=== PATIENT | female | born 1990 | race Caucasian/White ===

== ENCOUNTER 2017-11-26 05:13 | Emergency (ER) | payer BC, OTHER ==
[~2017-11-26] VITALS: Ht 172.7 cm; Wt 55.8 kg
[2017-11-26 07:24] LABS: Basophils # (auto) 0 uL; Basophils % (auto) 0.4 % (0.0-2.0); Eosinophils # (auto) 0 uL; Eosinophils % (auto) 0.5 % (0.0-7.0); Hematocrit 44.4 % (36.0-46.0); Hemoglobin 14.9 g/dL (12.2-16.2); Lymphocytes # (auto) 1.6 uL; Lymphocytes % (auto) 22.7 % (10.0-50.0); Mean Corpuscular Hemoglobin 31.1 pg (28.0-32.0); Mean Corpuscular Hgb Conc. 33.5 g/dL (32.0-36.0); Mean Corpuscular Volume 92.7 fL (80.0-100.0); Monocytes # (auto) 0.6 uL; Neutrophils # (auto) 4.7 uL; Neutrophils % (auto) 68.4 % (37.0-80.0); Nucleated Red Blood Cells % 0.1 %; Platelet Count (auto) 256 10^3/uL (140-450); Red Blood Cells 4.79 10^6/uL (4.0-5.20); White Blood Cell 6.9 10^3/uL (4.4-10.8)
[2017-11-26 07:31] LABS: Urine Amorphous Crystal MOD /hpf (None Seen); Urine Bacteria FEW /hpf (None Seen); Urine Blood Negative /uL (Negative); Urine Mucus FEW (None Seen); Urine Specific Gravity 1.024 (1.001-1.035); Urine WBC 2 /hpf (0 - 5)
[2017-11-26 07:33] LABS: BUN/Creatinine Ratio 11.5; Calcium 8.9 mg/dL (8.5-10.1); Magnesium 2.1 mg/dL (1.6-2.6); Potassium 4.2 mmol/L (3.5-5.1)
[2017-11-26 07:36] LABS: Bilirubin, Total 0.4 mg/dL (0.2-1.0); Total Protein 7.6 g/dL (6.4-8.2)
[2017-11-26 07:59] VITALS: BP 114/76
[2017-11-26] MEDS ORDERED: SODIUM CHLORIDE 0.9% 1,000 ML IV ONE ×2 (08:30→09:15)
[2017-11-26] MEDS ORDERED: ONDANSETRON HCL 4 MG/2 ML VIAL IV ONE (08:30)
== END 2017-11-26 10:34 | disposition home or self-care (01) ==
LOC: ER 05:13
DX: O21.9 Vomiting of pregnancy, unspecified (principal); O26.891 Other specified pregnancy related conditions, first trimester; Z3A.01 Less than 8 weeks gestation of pregnancy; R10.9 Unspecified abdominal pain
CPT/HCPCS: 36415; 76801; 80053; 81001; 83735; 84702; 85025; 96361; 96374; 99285; J2405; J7030

== ENCOUNTER 2019-10-03 00:30 | Emergency (ER) | payer BC, MEDICAID ==
[~2019-10-03] VITALS: Ht 172.7 cm; Wt 52.6 kg
[2019-10-03 00:33] VITALS: BP 134/91
[2019-10-03 01:27] LABS: Urine Bacteria FEW /hpf (None Seen); Urine Blood Negative /uL (Negative); Urine Mucus FEW (None Seen)
[2019-10-03 01:29] LABS: Urine WBC 6 /hpf (0 - 5)
== END 2019-10-03 04:26 | disposition home or self-care (01) ==
LOC: ER 00:33
DX: G43.909 Migraine, unspecified, not intractable, without status migrainosus (principal); N39.0 Urinary tract infection, site not specified; R11.2 Nausea with vomiting, unspecified
CPT/HCPCS: 70450; 81001

== ENCOUNTER 2022-11-01 08:15 | Emergency (ER) | payer MEDICAID ==
[~2022-11-01] VITALS: Ht 172.7 cm; Wt 58.0 kg
[2022-11-01] MEDS ORDERED: SODIUM CHLORIDE 0.9% 1,000 ML IV ONE ×2 (08:45)
[2022-11-01] MEDS ORDERED: PROMETHAZINE HCL 25 MG/ML 1ML IV ONE (08:45)
[2022-11-01 09:09] LABS: Basophils # (auto) 0 10 ^3/uL (0-0.2); Basophils % (auto) 0.3 % (0.0-2.0); Eosinophils # (auto) 0.1 10 ^3/uL (0-0.8); Eosinophils % (auto) 1.5 % (0.0-7.0); Hematocrit 41.4 % (36.0-46.0); Hemoglobin 14.4 g/dL (12.2-16.2); Lymphocytes # (auto) 1.4 10 ^3/uL (0.4-5.4); Lymphocytes % (auto) 14.9 % (10.0-50.0); Mean Corpuscular Hemoglobin 31.1 pg (28.0-32.0); Mean Corpuscular Hgb Conc. 34.7 g/dL (32.0-36.0); Mean Corpuscular Volume 89.7 fL (80.0-100.0); Monocytes # (auto) 0.7 10 ^3/uL (0-1.3); Monocytes % (auto) 7.7 % (0.0-12.0); Neutrophils # (auto) 6.9 10 ^3/uL (1.6-8.6); Neutrophils % (auto) 75.6 % (37.0-80.0); Red Blood Cells 4.62 10^6/uL (4.0-5.20); Red Cell Distribution Width 12.9 % (11.8-14.3); White Blood Cell 9.1 10^3/uL (4.4-10.8)
[2022-11-01 09:18] LABS: Albumin 3.9 g/dL (3.4-5.0); Bilirubin, Total 0.3 mg/dL (0.2-1.0); Calcium 9.3 mg/dL (8.5-10.1); Potassium 4.4 mmol/L (3.5-5.1)
[2022-11-01 12:05] VITALS: BP 125/87
== END 2022-11-01 12:07 | disposition home or self-care (01) ==
LOC: ER 08:15
DX: O21.0 Mild hyperemesis gravidarum (principal); R10.2 Pelvic and perineal pain; Z3A.10 10 weeks gestation of pregnancy
CPT/HCPCS: 36415; 76801; 80053; 84702; 85025; 96361; 96374; 99284; J2550; J7030

== ENCOUNTER 2024-08-21 19:32 | Emergency (ER) | payer SELFPAY ==
[~2024-08-21] VITALS: Ht 172.7 cm; Wt 56.8 kg
--- NOTE | 2024-08-21 19:54 | ED.PDOC ---
History of Present Illness HPI Comments 34 y/o F, with a Hx of hyperemesis gravidarum and a FMHx of endometriosis, presents with c/o abnormal vaginal bleeding and discharge, today. Patient reports being 10.5x weeks with her 5th ([id number]) and endorses onset of symptoms, while using her restroom at home, this evening. Patient desc ribes spotting and discharge as "dark brown" in appearance and estimating on producing a 1/4 of a cup's worth. She states on no prior Hx of symptoms with her previous pregnancies in the past. She reports no recent injuries, sick contact, sexual activities, or other relevant or pertinent Hx at time of assessment. She denies having any abdominal pain, lightheadedness, weakness, dizziness, urinary symptoms, or other associated symptoms at this time. 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: Other (hyperemesis gravidarum) 5 Para 4 AB 0 LMP 06/07/2024 Family History Family History: Reviewed,noncontributory to illness, No family hx of Cancer, No family hx of DM, No family hx of Heart vicenta, No family hx of HTN, No family hx ofKidney vicenta, No family hx of Liver vicenta, No family hx of Lung vicenta, No family hx of Stroke Family History (Other): Family history of brain aneurysm Social History Smoker: Non-Smoker Alcohol: Denies ETOH Use Drugs: Denies Drug Use Lives In: Home Constitutional: denies: chills, diaphoresis, fatigue, fever, malaise, sweats, weakness, others EENTM: denies: blurred vision, double vision, ear bleeding, ear discharge, ear drainage, ear pain, ear ringing, eye pain, eye redness, hearing loss, mouth pain, mouth swelling, nasal discharge, nose bleeding, nose congestion, nose pain, photophobia, tearing, throat pain, throat swelling, voice changes, others Respiratory: denies: cough, hemoptysis, orthopnea, SOB at rest, shortness of breath, SOB with excertion, stridor, wheezing, others Cardiovascular: denies: chest pain, dizzy spells, diaphoresis, Dyspnea on exertion, edema, irregular heart beat, left arm pain, lightheadedness, p alpitations, PND, syncope, others Gastrointestinal: denies: abdomen distended, abdominal pain, blood streaked bowels, constipated, diarrhea, dysphagia, difficulty swallowing, hematemesis, melena, nausea, poor appetite, poor fluid intake, rectal bleeding, rectal pain, vomiting, others Genitourinary: reports: abnormal vagina bleeding, vagina discharge; denies: burning, dyspareunia, dysuria, flank pain, frequency, hematuria, incontinence, pain, , urgency, others Neurological: denies: dizziness, fainting, headache, left sided numbness, left sided weakness, numbness, paresthesia, pre-existing deficit, right sided numbness, right sided weakness, seizure, speech problems, tingling, tremors, weakness, others Musculoskeletal: denies: back pain, gout, joint pain, joint swelling, muscle pain, muscle stiffness, neck pain, others Integumetry: denies: bruises, change in color, change in hair/nails, dryness, laceration, lesions, lumps, rash, wounds, others Allergic/Immunocompromised: denies: Difficulty Healing, Frequent Infections, Hives, Itching, others Hematologic/Lymphatic: denies: anemia, blood clots, easy bleeding, easy bruising, swollen glands, others Endocrine: denies: excessive hunger, excessive sweating, excessive thirst, excessive urination, flushing, intolerance to cold, intolerance to heat, u nexplained weight gain, unexplained weight loss, others Psychiatric: denies: anxiety, bipolar disorder, depression, hopeless, panic disorder, schizophrenia, sleepless, suicidal, others All Other Systems: Reviewed and Negative Physical Exam General Appearance: No Apparent Distress HEENT: Normal ENT Inspection, Pharynx Normal, TMs Normal Neck: Full Range of Motion, Non-Tender, Normal, Normal Inspection Respiratory: Chest Non-Tender, Lungs Clear, No Accessory Muscle Use, No Respiratory Distress, Normal Breath Sounds Cardiovascular: No Edema, No JVD, No Murmur, No Gallop, Normal Peripheral Pulses, Regular Rate/Rhythm Breast Exam: Deferred Gastrointestinal: No Organomegaly, Non Tender, No Pulsatile Mass, Normal Bowel Sounds, Soft Genitalia: Deferred Pelvic: Deferred Rectal: Deferred Extremities: No calf tenderness, Normal capillary refill, Normal inspection, Normal range of motion, Non-tender, No pedal edema Musculoskeletal : Apperance: Normal Neurologic: Alert, 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 Was a procedure done?: No Differential Dx Considerations may include: at-risk , at-risk , menorrhagia, metrorrhagia, dysmenorrhea, UTI X-Ray, Labs, Meds, VS Vital Signs Date Time Temp Pulse Resp B/P (MAP) Pulse Ox O2 Delivery O2 Flow Rate FiO2 08/21/24 19:44 98.1 78 16 122/80 (94) 99 Lab Test 08/21/24 20:07 Range/Units Urine Color Colorless Yellow Urine Clarity Clear Clear Urine pH 6.5 5.0-9.0 Urine Specific [place] 1.012 1.001-1.035 Urine Protein Negative Negative Urine Ketones Negative Negative Urine Blood 1+ H Negative /uL Urine Nitrite Negative Negative Urine Bilirubin Negative Negative Urine Urobilinogen Normal Negative mg/dL Urine Leukocyte Esterase Negative Negative /uL Urine RBC <1 0 - 4 /hpf Urine WBC 1 0 - 5 /hpf Urine Squamous Epithelial Cells Few <5 /hpf Urine Bacteria Few H None Seen /hpf Urine Glucose Normal Normal mg/dL Pelvic ultrasound shows: IMPRESSION: 1. IUP single live fetus 10 weeks 2 days AUA corresponding to an LEIGHTON of 03/17/2025. 2. FHR: 182 bpm No acute abnormality detected. The urine test is negative The patient was being discharged and will follow up with the primary care doctor The patient will return to the emergency department's condition worsens The patient was diagnosis is threatened Images Reviewed?: Images reviewed and evaluated by me Time of 1ST Reevaluation: 20:10 Reevaluation 1ST: Unchanged Patient Education/Counseling: Diagnosis, Treatment, Prognosis Family Education/Counseling: No Family Present Departure 1 Departure Time of Disposition: 21:19 Impression: Primary Impression: Threatened Disposition: HOME / SELF CARE / HOMELESS Condition: Fair Discharged With: Self Critical Care Note Critical Care Time?: No Stability Stability form required: No Heart Score Heart Score: Heart Score Response (Comments) Value History N/A 0 EKG N/A 0 Age N/A 0 Risk Factors N/A 0 Troponin N/A 0 Total 0 I personally scribed for LISE PAYNE MD ([email or web address]) on 08/21/24 at 19:54. Electronically submitted by Nestor Castellon ([email or web address]). LISE PAYNE MD Aug 21, 2024 19:54
[2024-08-21 20:23] LABS: Urine Bacteria FEW /hpf (None Seen); Urine Blood 1+ /uL (Negative); Urine Clarity Clear (Clear); Urine Color Colorless (Yellow); Urine Protein, UAD Negative (Negative); Urine Specific Gravity 1.012 (1.001-1.035); Urine Urobilinogen Normal (Negative); Urine WBC 1 /hpf (0 - 5); Urine pH 6.5 (5.0-9.0)
--- NOTE | 2024-08-21 21:06 | DVH ---
OB ULTRASOUND <14 WEEKS: HISTORY: bleeding TECHNIQUE: Multiple real-time grayscale sonographic images of the pelvis with duplex Doppler color f low, spectral and M-mode analysis. TRANSDUCERS: Transabdominal FINDINGS: The uterus measures 11.25 by 11.22 by 7.73 Right ovary measures 2.29 by 1.47 x 2.36 cm. Volume of the right ovary is 4.16 cc. There is a mixed m ass in the right ovary measuring 1.38 x 1.5 x 1.58 cm. with normal Doppler color flow Left ovary measures 1.83 x 1.56 x 1.89 cm. Left ovarian volume is 2.82 cc with normal Doppler color f low IUP single live fetus at 10 weeks 2 days average ultrasound age based on mean crown-rump length of 3. 57 cm and gestational sac size of 4.58 cm heart rate detected at 182 beats per minute. Yolk sac visualized. Amniotic fluid adequate IMPRESSION: 1. IUP single live fetus 10 weeks 2 days AUA corresponding to an LEIGHTON of 03/17/2025. 2. FHR: 182 bpm No acute abnormality detected.
[2024-08-21 23:45] VITALS: BP 115/81; PULSE 72; TEMP 98
[2024-08-21 23:47] VITALS: RESP 14; O2SAT 100
== END 2024-08-21 23:52 | disposition home or self-care (01) ==
LOC: ER 19:32
DX: O20.0 Threatened abortion (principal); Z3A.10 10 weeks gestation of pregnancy
CPT/HCPCS: 36415; 76801; 81001; 84702